=== PATIENT | male | born 1975 | race Caucasian/White ===

== ENCOUNTER → 2023-07-17 06:31 | Day surgery (SDC) | payer OTHER, SELFPAY ==
[2023-07-17 12:39] LABS: Glucose - Point of Care 93 mg/dl (70-99)
== END ==
LOC: GI 06:31
PROVIDERS: ATTENDING PHYSICIAN Surgery
DX: Z12.11 Encounter for screening for malignant neoplasm of colon (principal); K57.90 Diverticulosis of intestine, part unspecified, without perforation or abscess without bleeding; D12.5 Benign neoplasm of sigmoid colon
CPT/HCPCS: 45385; 88305; 82962

== ENCOUNTER 2024-10-13 17:22 | Emergency (ER) | payer SELFPAY ==
[2024-10-13 17:32] VITALS: BP 121/88
[2024-10-13 18:07] VITALS: BMI 27.2
[2024-10-13] MEDS: MOTRIN 400 MG PO (21:21)
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
[2024-10-13] MEDS: FLEXERIL 10 MG PO (22:37)
== END 2024-10-13 22:47 | disposition home or self-care (01) ==
LOC: EMR 17:22
PROVIDERS: EMERGENCY PHYSICIAN Emergency Medicine; FAMILY PHYSICIAN Nurse Practitioner Acute Care
DX: S16.1XXA Strain of muscle, fascia and tendon at neck level, initial encounter (principal); S39.012A Strain of muscle, fascia and tendon of lower back, initial encounter; V49.40XA Driver injured in collision with unspecified motor vehicles in traffic accident, initial encounter
CPT/HCPCS: 99283

== ENCOUNTER → 2024-10-21 12:09 | Outpatient (REF) | payer OTHER, SELFPAY | LOC: HWRAD 12:09 | PROVIDERS: ATTENDING PHYSICIAN Family Medicine | DX: M54.50 Low back pain, unspecified (principal); V89.2XXA Person injured in unspecified motor-vehicle accident, traffic, initial encounter; M54.2 Cervicalgia | CPT/HCPCS: 72052; 72110 ==